=== PATIENT | male | born 2000 | race Caucasian/White ===

== ENCOUNTER 2023-06-16 11:01 | Emergency (ER) | payer MEDICAID, SELFPAY ==
[2023-06-16 11:23] VITALS: BP 142/88; PULSE 80; RESP 18; TEMP 36.7; O2SAT 100; BMI 34.8
--- NOTE | 2023-06-16 11:23 | ED_ITS ---
HPI - URI/Sore Throat General Chief Complaint: General Medical Stated Complaint: cough fever loss of smell Time Seen by Provider: 06/16/23 11:26 Source: patient, RN notes reviewed and old records reviewed Mode of arrival: ambulatory History of Present Illness HPI Narrative: 22-year-old male with no significant past medical history presenting to the ED complaining of low-grade fever, ear pain, lost taste/smell and rhinorrhea x 4 days. Admits fever has now resolved. Denies sore throat, cough, SOB/CP, recent travel. Admits brother was recently sick with similar symptoms. MD elicited complaint: fever, rhinorrhea and nasal congestion Related Data Allergies Allergy/AdvReac Type Severity Reaction Status Date / Time No Known Allergies Allergy Verified 06/16/23 11:24 Review of Systems Review of Systems: Constitutional: + Fever, No Chills ENT/Mouth: + Ear Pain, + Nasal Congestion, No Sinus Pain, No Hoarseness, No sore throat, + Rhinorrhea, No Swallowing Difficulty Cardiovascular: No Chest Pain, No SOB Respiratory: No Cough, No Sputum, No Wheezing Gastrointestinal: No Nausea, No Vomiting, No Diarrhea, No Constipation, No Abdominal pain Genitourinary: No Dysuria, No Urinary Frequency, No Hematuria, No Flank Pain Musculoskeletal: No joint pain, No Myalgias, No Joint Swelling Skin: No Skin Lesions, No rash Neuro: No Weakness Yes all other systems are reviewed and are negative Constitutional: Constitutional: Reports as per [facility] Past Medical History Attestation statement: The following information was validated with the patient. Source: old records reviewed Physical Exam Vital Signs: Vital Signs: Last Vital Signs Temp 98.1 F 06/16/23 11:23 Pulse 80 06/16/23 11:23 Resp 18 06/16/23 11:23 BP 142/88 H 06/16/23 11:23 Pulse Ox 100 06/16/23 11:23 O2 Del Method Room Air 06/16/23 11:23 BMI result Body Mass Index 34.8 Const: General: cooperative, healthy appearing, no acute distress, alert, awake and Physically active Orientation/consciousness: patient oriented x3 Limitations: no limitations HEENT: Head: Yes normal to inspection and Yes atraumatic Ears: hearing grossly normal bilaterally, external ears normal, TM's normal bilaterally and mastoids normal General nose exam: Normal external nose present Face and sinus: Yes normal facial exam Mouth: Normal oral and palatal mucosa present Throat: Yes posterior oropharynx normal, Yes tonsils normal, Yes uvula midline, No peritonsillar mass and No uvular edema Eyes: General: appearance normal, both eyes and all related structures EOM: EOMs intact bilaterally Neck: Neck: Yes normal visual inspection and Yes no meningeal signs Resp: Effort & Inspection: normal respiratory effort and no respiratory distress Auscultation: clear to auscultation bilaterally, no crackles and no wheezes Cardio: Rate: regular rate Heart sounds: S1 normal heart sound present and S2 normal heart sound present Skin: Rashes: no rashes Wounds: no wounds Neuro: General: patient oriented x3, tone normal and no meningeal signs Cranial nerves: Yes CN's II-XII intact bilaterally Gait exam (Neuro): Normal gait present Extrem: General: Yes normal to inspection Course Course Course Narrative: -COVID-19 positive Results discussed with patient including worrisome signs and symptoms and strict return precautions, and when to return to the emergency department. They verbalized understanding and feel safe for discharge at this time. Medical Decision Making Medical Decision Making [facility] Narrative: 22-year-old male with no significant past medical history presenting to the ED complaining of low-grade fever, ear pain, lost taste/smell and rhinorrhea x 4 days. On exam vital signs stable, NAD, nontoxic appearing, physical exam benign, lungs CTA, or pharynx and TMs WNL. Concern for viral illness very low suspicion or evidence of otitis media/externa, strep pharyngitis or pneumonia Plan: Viral testing Please refer to course for remaining clinical decision making, interpretation of labs/imaging results, and discussions with consultants and/or family members. Differential Diagnosis Differential Diagnoses: The differential diagnosis associated with the presentation includes As above Lab Data Labs: Lab Results 06/16/23 06/16/23 06/16/23 Range/Units 11:29 11:29 11:29 COVID-19 ([facility]) Positive A (Negative) COVID-19 Clin Com See Note Influenza Type A ([facility]) Negative (Negative) Influenza Type B ([facility]) Negative (Negative) Influenza A & B Note See Note S. pyogenes GrpA [facility] Negative (Negative) Radiology Impression Discussion of test interpretation with radiology: I have reviewed the radiologist's reading. External Record Review External record reviewed: Inpatient record, Office record, Outpatient record, Prior outpatient labs, Prior outpatient radiology, Primary care record and Outside ED record Tests considered The following testing was considered but not selected: As above Prescription Management I considered prescription management with: Antiviral and Antibiotic Discharge Plan Discharge Clinical Impression: Acute viral syndrome Patient Disposition: Home, Self-Care Instructions: Viral Syndrome (ED) Additional Instructions: Rest. Stay hydrated. Take Tylenol /Motrin as needed Follow-up with your doctor, if symptoms persist or worsen return to the ED Referrals: Physician,None [Primary Care Provider] - Stand Alone Forms: Work/School Release
[2023-06-16 11:46] LABS: COVID-19 Test Positive (Negative); IDNOW Serial# 16C4AD1C
[2023-06-16 11:47] LABS: Strep A Nucleic Acid Negative (Negative)
[2023-06-16 12:01] LABS: IDNOW Serial# 16C4AD1C; Influenza A Negative (Negative); Influenza B2 Negative (Negative)
--- NOTE | 2023-06-16 12:21 | PC.NURSE ---
eval and dc by pit
== END 2023-06-16 12:30 | disposition home or self-care (01) ==
LOC: HO.ED 12:28
PROVIDERS: Physician Assistant; Emergency Provider Emergency Medicine
DX: U07.1 COVID-19 (principal); B34.9 Viral infection, unspecified; R50.9 Fever, unspecified
CPT/HCPCS: 87502; 87635; 87651; 99282; 99283